=== PATIENT | male | born 1965 | race Caucasian/White ===

== ENCOUNTER → 2019-03-23 | Outpatient (CLI) | payer OTHER ==
--- NOTE | 2019-03-23 12:50 | CT ---
EXAMINATION TYPE: CT abdomen pelvis wo con DATE OF EXAM: 03/23/2019 COMPARISON: None HISTORY: Left flank pain CT DLP: 2268.1 mGycm Automated exposure control for dose reduction was used. TECHNIQUE: Helical acquisition of images was performed from the lung bases through the pelvis. FINDINGS: LUNG BASES: No significant abnormality is appreciated. LIVER/GB: No significant abnormality is appreciated. PANCREAS: No significant abnormality is seen. SPLEEN: No significant abnormality is seen. ADRENALS: No significant abnormality is seen. KIDNEYS: LEFT kidney: There is mild to moderate left hydronephrosis. There are least 6 left renal calculi and there is a left renal pelvic calcification. The renal pelvic calcification measures approximately 7 t o 8 mm. The majority of the calcifications within the left kidney measure 5 mm or less. Report called to referring clinician. Right kidney: No hydronephrosis or nephrolithiasis. ADENOPATHY: None visualized. OSSEOUS STRUCTURES: Severe hypertrophic and multilevel degenerative disc disease. Arthropathy of the hips. Osteitis pubis condensans. Correlate for femoral acetabular impingement. Multilevel canal sten osis suspected. BOWEL: No significant abnormality is seen. OTHER: Small fat-containing periumbilical hernia. Vascular calcification seen. Aorta of normal calibe r. IMPRESSION: 1. Moderate left hydronephrosis with multiple left renal calculi and an obstructing left UPJ calcific ation measuring approximately 8 mm in diameter. 2. Severe degenerative disc disease with multilevel canal stenosis noted.
== END | disposition home or self-care (01) ==
LOC: RADCTMAIN 11:57
PROVIDERS: ATTEND Family Medicine
DX: N13.2 Hydronephrosis with renal and ureteral calculous obstruction (principal); Q62.11 Congenital occlusion of ureteropelvic junction
CPT/HCPCS: 74176

== ENCOUNTER → 2019-03-24 | Outpatient (CLI) | payer OTHER ==
[2019-03-24 13:31] LABS: Basophils % (A) 0 %; Eosinophils # (A) 0.2 k/uL (0-0.7); Eosinophils % (A) 2 %; HCT 43.4 % (39.0-53.0); HGB 15.2 gm/dL (13.0-17.5); Lymphocytes # (A) 1.7 k/uL (1.0-4.8); Lymphocytes % (A) 23 %; MCH 31.7 pg (25.0-35.0); MCHC 34.9 g/dL (31.0-37.0); MCV 90.8 fL (80.0-100.0); Mean Platelet Volume 5.6; Monocytes # (A) 0.5 k/uL (0-1.0); Monocytes % (A) 7 %; Neutrophils # (A) 4.7 k/uL (1.3-7.7); Neutrophils % (A) 66 %; Platelet Count 200 k/uL (150-450); RBC 4.78 m/uL (4.30-5.90); RDW 13.5 % (11.5-15.5); WBC 7.1 k/uL (3.8-10.6)
[2019-03-24 13:41] LABS: Calcium 9.1 mg/dL (8.4-10.2); Potassium 3.9 mmol/L (3.5-5.1)
== END | disposition home or self-care (01) ==
LOC: LABPAT 12:22
PROVIDERS: ATTEND Urology
DX: Z01.812 Encounter for preprocedural laboratory examination (principal); N20.0 Calculus of kidney
CPT/HCPCS: 36415; 80048; 85025; 86850; 86900; 86901

== ENCOUNTER 2019-03-27 11:48 | Day surgery (SDC) | payer OTHER ==
--- NOTE | 2019-03-26 19:42 | P.GSHP ---
History of Present Illness H&P Date: 03/26/19 53 yo male with multiple left renal and ureteral stones with pain who is coming for a left pcnl. THere is a 12 mm upj stone and 20mm of llp stones Alternatives were discussed the risks and complications of a left pcnl was discussed. - Constitutional Constitutional: Denies chills, Denies fever - EENT Eyes: denies blurred vision, denies pain Ears, nose, mouth and throat: Denies headache, Denies sore throat - Cardiovascular Cardiovascular: Denies chest pain, Denies shortness of breath - Respiratory Respiratory: Denies cough, Denies 7 - Gastrointestinal Gastrointestinal: Denies abdominal pain, Denies diarrhea, Denies nausea, Denies vomiting - Genitourinary (Female) Genitourinary: Denies dysuria, Denies hematuria - Genitourinary (Male) Genitourinary: Denies dysuria, Denies hematuria - Musculoskeletal Musculoskeletal: Denies myalgias - Integumentary Integumentary: Denies pruritus, Denies rash - Neurological Neurological: Denies numbness, Denies weakness - Psychiatric Psychiatric: Denies anxiety, Denies depression - Endocrine Endocrine: Denies fatigue, Denies weight change Past Medical History Additional Past Medical History / Comment(s): kidney stone History of Any Multi-Drug Resistant Organisms: None Reported Additional Past Surgical History / Comment(s): laser eye sx Past Anesthesia/Blood Transfusion Reactions: No Reported Reaction Additional Past Anesthesia/Blood Transfusion Reaction / Comment(s): never had general surgery Smoking Status: Current every day smoker - Past Family History Mother Family Medical History: Cancer Additional Family Medical History / Comment(s): ovarian Sister(s) Family Medical History: Cancer Additional Family Medical History / Comment(s): lymphoma Medications and Allergies Home Medications Medication Instructions Recorded Confirmed Type Aspirin 325 mg PO DAILY 03/24/19 03/24/19 History HYDROcodone/APAP 7.5-325MG [[place] 1 tab PO TID PRN 03/24/19 03/24/19 History 7.5-325] Multivitamins, Thera [Multivitamin 1 tab PO DAILY 03/24/19 03/24/19 History (formulary)] Naproxen Sodium [Aleve] 220 mg PO DIRECTED PRN 03/24/19 03/24/19 History Omeprazole [PriLOSEC] 20 mg PO DAILY PRN 03/24/19 03/24/19 History Tamsulosin [Flomax] 0.4 mg PO DAILY 03/24/19 03/24/19 History Allergies Allergy/AdvReac Type Severity Reaction Status Date / Time Penicillins Allergy Unknown Verified 03/24/19 14:31 Childhood Surgical - Exam - General well developed, well nourished - ENT no hearing loss - Neck no masses, trachea midline - Respiratory normal expansion, normal respiratory effort - Cardiovascular Rhythm: regular - Abdomen Abdomen: soft, non tender - Genitourinary normal penis with no external lesions, testicles present - Integumentary no rash - Neurologic normal coordination, normal sensation - Psychiatric oriented to person, oriented to place, speech is normal Results - Imaging CT scan - abdomen: report reviewed, image reviewed CT scan - pelvis: report reviewed, image reviewed Assessment and Plan Assessment: Impression: Left renal stones, large Plan: Pcnl left
[~2019-03-27 11:48] MED LIST: DEXAMETHASONE SOD PHOSPHATE 10 MG/ML 1 ML VIAL IV ONE; HYDROmorphone 0.5 MG/0.5 ML SYRINGE IVP PRN; LIDOCAINE 1% 20 ML VIAL (10MG/ML) FOR IV START INTRADERMA PRN; ONDANSETRON 4 MG/2 ML VIAL IVP ONE; fentaNYL (PF) 50 MCG/ML 2 ML AMP IV PRN
--- NOTE | 2019-03-27 12:51 | XR ---
Abdomen HISTORY: Nephrolithiasis Frontal view the abdomen on [address] scan 03/23/2019 There is a calculus present in the proximal left ureter region as noted on CT measuring 11 mm. Multip le calcifications are present in the lower pole the left kidney, largest measuring approximately 7 to 8 mm. Degenerative disc changes are present in the visualized spine. There is no obstruction or pneumoperit oneum. IMPRESSION: Left nephrolithiasis, ureteral calculus.
[2019-03-27] MEDS: LACTATED RINGERS 1,000 ML IV SCH ×2 (13:05→23:00)
[2019-03-27] MEDS ORDERED: HEPARIN SODIUM,PORCINE 5,000 UNIT/ML 1 ML VIAL SQ ONE (13:26)
[2019-03-27] MEDS ORDERED: MIDAZOLAM 2 MG/2 ML VIAL ONE (14:12)
[2019-03-27] MEDS ORDERED: NEOSTIGMINE 1 MG/ML 10 ML VIAL ONE (14:12)
[2019-03-27] MEDS ORDERED: fentaNYL (PF) 50 MCG/ML 2 ML AMP ONE (14:12)
[2019-03-27] MEDS ORDERED: LIDOCAINE 1% INJ 10MG/ML (20 ML MDV) ONE (14:12)
[2019-03-27] MEDS ORDERED: GLYCOPYRROLATE 0.2 MG/ML 2 ML VIAL ONE (14:12)
[2019-03-27] MEDS ORDERED: ROCURONIUM BROMIDE 10 MG/ML 10 ML VIAL IV ONE (14:12)
[2019-03-27] MEDS ORDERED: SUCCINYLCHOLINE CHLORIDE VIAL 200 MG/10 ML VIAL IV ONE (14:12)
[2019-03-27] MEDS ORDERED: PROPOFOL 10 MG/ML 20 ML VIAL IV ONE (14:12)
[2019-03-27] MEDS ORDERED: IOPAMIDOL-370 50ML BTL MISCELLANE ONE (14:52)
[2019-03-27] MEDS ORDERED: IOHEXOL 350 MG/ML (PER ML) 100ML BTL MISCELLANE ONE (14:52)
[2019-03-27] MEDS ORDERED: LACTATED RINGERS 1,000 ML IV ONE ×2 (15:28→16:21)
[2019-03-27] MEDS ORDERED: PANTOPRAZOLE 40 MG TABLET PO PRN (15:34)
[2019-03-27] MEDS ORDERED: ONDANSETRON 4 MG/2 ML VIAL IVP PRN (15:34)
[2019-03-27] MEDS ORDERED: MAG HYDROX/AL HYDROX/SIMETH 30 ML CUP PO PRN (15:34)
[2019-03-27] MEDS ORDERED: ACETAMINOPHEN TAB 325 MG TAB PO PRN (15:34)
[2019-03-27] MEDS ORDERED: HYDROmorphone PCA 10 MG/50 ML BAG IV PRN (15:36)
[2019-03-27] MEDS ORDERED: NALOXONE 0.4 MG/ML 1 ML VIAL IV PRN (15:36)
--- NOTE | 2019-03-27 15:41 | P.OP ---
Date of Procedure: 03/27/19 Preoperative Diagnosis: Left ureteral and renal calculi, large Postoperative Diagnosis: Same Procedure(s) Performed: Cystoscopy, placement of occluding balloon catheter left, percutaneous nephrostomy (Dr. Noriega) percutaneous nephrostolithotomy, placement of 10-[place] J nephrostomy Anesthesia: SANDRA Surgeon: Richie Barber Estimated Blood Loss (ml): 50 Pathology: other (Stone) Condition: stable Disposition: PACU Indications for Procedure: The patient is a 53-year-old, morbidly obese gentleman with a 12 mm UPJ stone and 20 mm of lower pole stone on the left. He was seen by who felt he be best served with a percutaneous nephrostolithotomy. I saw him simultaneously in the office. We have set him up for this procedure today. The lower pole stones are not well seen on the KUB today. Description of Procedure: Patient is brought to the operating suite. He is given a general endotracheal anesthesia on the transport gurney. He's placed in a frog position with a sterile prep and drape and rolls underneath his hips. Cystoscopy Foroblique lens and 22-[place] sheath identifies normal urethra. The prostate is not obstructing. The left ureteral orifice is identified and intubated with a 5- [place] occluding balloon catheter that is passed up into the UPJ. It is secured to a 16-[place] Leiva after the cystoscope was removed The patient is placed in a prone position to care to airways and extremities. Dr. Noriega of radiology performed access to the lower pole calyx. We dilate the tract to 30-[place]. Introduced the rigid sheath into the collecting system. With the rigid scope removed clot. I first identified the first lower pole calyceal stone. He passed the scope into the renal pelvis there is another lower pole stone crumbled. We then pass the scope into the UPJ where there is a large stone that is grasped broken in half and pulled out. I then pulled the rigid scope back into the lower pole calyx and identify another stone that is about 8 or 9 mm remove it. This point time I passed the flexible scope down the UPJ throughout the collecting system and see no remaining stone. A 10-[place] J nephrostomy tube was placed over the working wire. Coils in the renal pelvis. It is secured to the skin with 2-0 silk. Sheath is removed the patient's awakened and returned recovery room good condition. Blood loss is approximately 50 mL. He'll be kept in the hospital overnight and discharged home upon recovery tomorrow. Patient's condition is good.
--- NOTE | 2019-03-27 16:04 | FL ---
EXAMINATION TYPE: FL Perc Nephrostomy New Access DATE OF EXAM: 03/27/2019 COMPARISON: CT 03/23/2019 HISTORY: Left renal stones. PROCEDURE: Maximal barrier technique was utilized. The skin overlying the left kidney was localized using fluor oscopy and the overlying skin prepped and draped. Lidocaine used for local anesthesia. Skin nikki wa s made with a scalpel. Access was gained under fluoroscopy, following placement of a ureteral occlus ion balloon by the referring clinician and instillation of air in the renal collecting system with a 21-gauge needle to the kidney. A suitable posterior calyx was chosen. A 0.018 inch wire was advanc ed. The access site was dilated and subsequently a sheath was advanced into the renal pelvis followi ng dilation with balloon along the tract. The patient underwent nephrolithotomy by the referring clin ician. The patient remained in stable condition without complication. The patient was discharged t o observation. 2 minutes 26 seconds fluoroscopy time, 4 intraoperative images document the procedure. IMPRESSION: STATUS POST NEPHROSTOMY PLACEMENT FOR NEPHROLITHOTOMY WITH FLUOROSCOPIC GUIDANCE. THIS PROCEDURE PER FORMED BY THE UNDERSIGNED.
[2019-03-27 17:57] VITALS: BMI 46.3
[2019-03-27] MEDS: DEXTROSE 5%-0.45% NACL 1,000 ML IV SCH (18:07)
[2019-03-27 18:12] VITALS: RESP 16
[2019-03-27] MEDS: HYDROcodone/APAP 7.5-325MG 1 EACH TAB PO PRN (21:38)
[2019-03-28] MEDS: DEXTROSE 5%-0.45% NACL 1,000 ML IV SCH (02:32)
[2019-03-28] MEDS: HYDROcodone/APAP 7.5-325MG 1 EACH TAB PO PRN (03:19)
[2019-03-28 05:50] VITALS: BP 137/84; PULSE 72; TEMP 98.7
--- NOTE | 2019-03-28 06:52 | P.DS ---
Providers Date of admission: The patient was admitted 03/27/2019 for percutaneous nephrostolithotomy to a large collection of left renal stones. These were removed. He did well overnight with a nephrostomy tube. His urine is clear. His pain is controlled. Vital signs are stable. He'll be discharged home. He'll follow-up in the office in on for nephrostomy tube removal. Is been given a prescription for [place]. Condition is good. Attending physician: Richie Barber Primary care physician: Mago Hutson Plan - Discharge Summary Discharge Rx Participant: No New Discharge Prescriptions: New HYDROcodone/APAP 5-325MG [[place] 5-325] 1 tab PO Q4HR PRN 3 Days #10 tab PRN Reason: Pain No Action Tamsulosin [Flomax] 0.4 mg PO DAILY Naproxen Sodium [Aleve] 220 mg PO DIRECTED PRN PRN Reason: Pain Multivitamins, Thera [Multivitamin (formulary)] 1 tab PO DAILY Aspirin 325 mg PO DAILY Omeprazole [PriLOSEC] 20 mg PO DAILY PRN PRN Reason: GERD HYDROcodone/APAP 7.5-325MG [[place] 7.5-325] 1 tab PO TID PRN PRN Reason: Pain Discharge Medication List Aspirin 325 mg PO DAILY 03/24/19 [History] HYDROcodone/APAP 7.5-325MG [[place] 7.5-325] 1 tab PO TID PRN 03/24/19 [History] Multivitamins, Thera [Multivitamin (formulary)] 1 tab PO DAILY 03/24/19 [History] Naproxen Sodium [Aleve] 220 mg PO DIRECTED PRN 03/24/19 [History] Omeprazole [PriLOSEC] 20 mg PO DAILY PRN 03/24/19 [History] Tamsulosin [Flomax] 0.4 mg PO DAILY 03/24/19 [History] HYDROcodone/APAP 5-325MG [[place] 5-325] 1 tab PO Q4HR PRN 3 Days #10 tab 03/28/19 [Rx]
[2019-03-28] MEDS ORDERED: TAMSULOSIN 0.4 MG CAP.ER.24H PO SCH (09:00)
== END 2019-03-28 11:20 | disposition home or self-care (01) ==
LOC: OR 11:48 → 4MS4W 16:39 → OR 03-28 11:20
PROVIDERS: ATTEND Urology
DX: N20.2 Calculus of kidney with calculus of ureter (principal); K21.9 Gastro-esophageal reflux disease without esophagitis; F17.200 Nicotine dependence, unspecified, uncomplicated; E66.01 Morbid (severe) obesity due to excess calories; Z68.42 Body mass index [BMI] 45.0-49.9, adult; Z87.442 Personal history of urinary calculi; Z98.890 Other specified postprocedural states; Z79.82 Long term (current) use of aspirin; Z79.891 Long term (current) use of opiate analgesic; Z79.899 Other long term (current) drug therapy; Z88.0 Allergy status to penicillin; Z80.41 Family history of malignant neoplasm of ovary; Z80.8 Family history of malignant neoplasm of other organs or systems
CPT/HCPCS: 82365; 50432 ×2; 74018; 52005; 50081; C2628; C1769 ×2; C1894; C1729; J2250; J0330; J1644; J1100; J2710; J0690; J2405; J2001; J3010; J2704; Q9967; 86850; 86900; 86901

== ENCOUNTER → 2024-01-15 | Outpatient (CLI) | payer OTHER ==
--- NOTE | 2024-01-15 09:30 | CT ---
EXAMINATION TYPE: CT abdomen pelvis w con CT DLP: 2433.4 mGycm, Automated exposure control for dose reduction was used. DATE OF EXAM: 01/15/2024 9:06 AM COMPARISON: CT abdomen pelvis most recent from CLINICAL INDICATION: Male, 58 years old with history of R10.[address] ABPW; Hematuria, RLQ pain. TECHNIQUE: Axial CT abdomen pelvis w con;Sagittal and coronal reformats were created on a separate w orkstation. Contrast used:100 mL of Isovue 300 with IV Contrast, (none if empty) Oral contrast used: with Oral Contrast (none if empty) FINDINGS: LOWER CHEST: Unremarkable ABDOMEN LIVER: Unremarkable GALLBLADDER AND BILE DUCTS: Unremarkable. PANCREAS: Unremarkable. SPLEEN: Unremarkable. ADRENAL GLANDS: Unremarkable. KIDNEYS AND URETERS: Right renal calculi measuring up to 10 mm with one in the renal pelvis measuring 18 mm which may be partially obstructing with mild hydronephrosis. Moderate left hydronephrosis with stacking ureteral stones present with at least 6 stones in the ureter left ureter just proximal to t he ureterovesicular junction. The largest most distally measuring 10 mm with multiple smaller upstrea m. PELVIS BLADDER: Unremarkable REPRODUCTIVE: Coarse calcifications of the prostate gland are identified. Prostate gland enlarged emanuel suring up to 5.5 cm in transverse dimension. ABDOMEN & PELVIS STOMACH AND BOWEL: No evidence of bowel obstruction. The appendix is normal. PERITONEUM/RETROPERITONEUM: No evidence of pneumoperitoneum or free fluid. VASCULATURE: No evidence of aortic aneurysm. MUSCULOSKELETAL: No acute osseous abnormalities. Moderate disc degeneration changes are present throu ghout the thoracolumbar spine. LYMPH NODES: No gross evidence for lymphadenopathy. SOFT TISSUE/ABDOMINAL WALL: Fat-containing umbilical hernia.r IMPRESSION: 1. Right renal nonobstructing calculi measuring up to 10 mm with one in the renal pelvis measuring 1 8 mm which may be partially obstructing with mild hydronephrosis. Urologic consultation recommended. 2. Moderate left hydronephrosis with stacking ureteral stones present with at least 6 stones in the ureter left ureter just proximal to the ureterovesicular junction. The largest most distally measurin g 10 mm with multiple smaller calculi upstream. Urologic consultation recommended 3. Normal appendix. No other acute right lower quadrant process present.
== END | disposition home or self-care (01) ==
LOC: RADCTMAIN 06:49
PROVIDERS: ATTEND Family Medicine
DX: N13.2 Hydronephrosis with renal and ureteral calculous obstruction (principal); R31.0 Gross hematuria
CPT/HCPCS: 74177; Q9967

== ENCOUNTER 2024-02-16 05:44 | Day surgery (SDC) | payer OTHER ==
[2024-02-10 15:28] VITALS: BMI 38.0
--- NOTE | 2024-02-15 11:12 | P.GSHP ---
History of Present Illness H&P Date: 02/15/24 58-year-old gentleman with kidney stones. His last stone was in 2019 where he had a percutaneous nephrostolithotomy for calcium oxalate stones. A gross hematuria recently. He had a computed tomography scan identifying bilateral stones. On the right there is a large renal pelvic stone plus calyceal stones. On the left there is a collection of ureteral stones in the distal left ureter. He comes for left ureteroscopy and laser lithotripsy and probable stent placement. He'll eventually undergo a percutaneous nephrostolithotomy on the right - Constitutional Constitutional: Denies chills, Denies fever - EENT Eyes: denies blurred vision, denies pain Ears, nose, mouth and throat: Denies headache, Denies sore throat - Cardiovascular Cardiovascular: Denies chest pain, Denies shortness of breath - Respiratory Respiratory: Denies cough, Denies 7 - Gastrointestinal Gastrointestinal: Denies abdominal pain, Denies diarrhea, Denies nausea, Denies vomiting - Genitourinary (Female) Genitourinary: Denies dysuria, Denies hematuria - Genitourinary (Male) Genitourinary: Denies dysuria, Denies hematuria - Musculoskeletal Musculoskeletal: Denies myalgias - Integumentary Integumentary: Denies pruritus, Denies rash - Neurological Neurological: Denies numbness, Denies weakness - Psychiatric Psychiatric: Denies anxiety, Denies depression - Endocrine Endocrine: Denies fatigue, Denies weight change Past Medical History Past Medical History: GERD/Reflux, Hypertension Additional Past Medical History / Comment(s): Hx kidney stone. Current kidney stones. History of Any Multi-Drug Resistant Organisms: None Reported Additional Past Surgical History / Comment(s): Laser eye surgery, procedure for kidney stones. Past Anesthesia/Blood Transfusion Reactions: No Reported Reaction Additional Past Anesthesia/Blood Transfusion Reaction / Comment(s): never had general surgery Smoking Status: Current every day smoker - Past Family History Mother Family Medical History: Cancer Additional Family Medical History / Comment(s): Ovarian cancer. Sister(s) Family Medical History: Cancer Additional Family Medical History / Comment(s): Lymphoma. Medications and Allergies Home Medications Medication Instructions Recorded Confirmed Type Multivitamins, Thera [Multivitamin 1 tab PO DAILY 03/24/19 02/10/24 History (formulary)] Omeprazole [PriLOSEC] 20 mg PO DAILY 03/24/19 02/10/24 History Glucosamine (Unknown Dose) 1 tab PO DAILY 02/10/24 02/10/24 History Lisinopril-Hctz 20-12.5 mg 1 tab PO QAM 02/10/24 02/10/24 History [Zestoretic 20-12.5] Allergies Allergy/AdvReac Type Severity Reaction Status Date / Time Penicillins Allergy Unknown Verified 02/10/24 14:53 Childhood Surgical - Exam - General well developed, well nourished, no distress - Eyes normal ocular movement, no icteric - ENT no hearing loss, no congestion - Neck no masses, trachea midline - Respiratory normal respiratory effort, clear to auscultation - Abdomen Abdomen: soft, non tender, no guarding, no rigid, no rebound - Integumentary no rash, no abnormal pigmentation - Neurologic no disoriented, no combative - Psychiatric oriented to time, oriented to person, oriented to place, speech is normal, memory intact Results - Imaging CT scan - abdomen: report reviewed, image reviewed CT scan - pelvis: report reviewed, image reviewed Assessment and Plan Assessment: Impression: Left ureteral stones with obstruction. Right renal stones. Plan left ureteroscopy laser lithotripsy was complications alternatives have been discussed.
[2024-02-16] MEDS ORDERED: MIDAZOLAM 2 MG/2 ML VIAL IV PRN (05:49)
[2024-02-16] MEDS ORDERED: fentaNYL (PF) 50 MCG/ML 2 ML AMP IVP PRN (05:49)
[2024-02-16] MEDS ORDERED: LIDOCAINE 1% (10MG/ML) FOR IV START INTRADERMA PRN (05:49)
[2024-02-16] MEDS ORDERED: HYDROmorphone 0.5 MG/0.5 ML SYRINGE IVP PRN (05:49)
--- NOTE | 2024-02-16 06:17 | XR ---
EXAMINATION TYPE: XR KUB DATE OF EXAM: 02/16/2024 6:11 AM CLINICAL HISTORY: Calculus of ureter TECHNIQUE: Two supine KUB images of the abdomen are obtained. COMPARISON: CT abdomen and pelvis January 15, 2024. FINDINGS: Persistent roughly 2.2 cm right pelvic calculus. There are 3-4 lower pole right renal calcu li measuring up to 12 mm in size. There are 3 adjacent distal left ureter calculi measuring up to 13 mm in size in the left pelvis. Overall nonobstructive bowel gas pattern. Scoliosis with multilevel spurring and disc space narrowing in the thoracolumbar spine is seen. Lung bases are clear. IMPRESSION: Bilateral nephrolithiasis redemonstrated. [facility], , 02/16/2024 6:15 AM
[2024-02-16] MEDS: IV FLUID CONTINUATION 1,000 ML IV ONE (06:47)
[2024-02-16] MEDS: ONDANSETRON 4 MG/2 ML VIAL IVP ONE (06:55)
[2024-02-16] MEDS: LACTATED RINGERS 1,000 ML IV SCH (06:56)
[2024-02-16] MEDS: DEXAMETHASONE SOD PHOSPHATE 4 MG/ML 1 ML VIAL IV ONE (06:56)
[2024-02-16] MEDS ORDERED: MIDAZOLAM 2 MG/2 ML VIAL ONE (07:26)
[2024-02-16] MEDS ORDERED: LIDOCAINE 1% INJ 10MG/ML (20 ML MDV) ONE (07:26)
[2024-02-16] MEDS ORDERED: PROPOFOL 10 MG/ML 20 ML VIAL IV ONE (07:26)
[2024-02-16] MEDS ORDERED: ePHEDrine 50 MG/ML 1 ML VIAL ONE (07:26)
[2024-02-16] MEDS ORDERED: fentaNYL (PF) 50 MCG/ML 2 ML AMP ONE (07:26)
[2024-02-16] MEDS: IOPAMIDOL-370 100ML BTL MISCELLANE ONE (07:58)
[2024-02-16] MEDS: LACTATED RINGERS 1,000 ML IV ONE (08:42)
[2024-02-16 09:00] VITALS: TEMP 97.2
--- NOTE | 2024-02-16 09:06 | P.OP ---
Date of Procedure: 02/16/24 Preoperative Diagnosis: ureteral calculi, large, left Postoperative Diagnosis: same Procedure(s) Performed: cystoscopy, left ureteroscopy with laser lithotripsy, placement of 6 x 24 double-J catheter Anesthesia: SANDRA Surgeon: Richie Barber Estimated Blood Loss (ml): 10 Pathology: other Condition: stable (stone) Disposition: PACU Indications for Procedure: the patient is 58. He had gross hematuria. He has bilateral stones. He is a large volume of renal stones on the right and he has 3 very large distal ureteral stones on the left almost 2 cm in volume. He comes for left ureteroscopy with laser lithotripsy. He'll need a percutaneous nephrostolithotomy at a later date on the right. Description of Procedure: patient brought to the operating suite. Given a general anesthetic. Placed lithotomy position with a sterile prep and drape. Cystoscopy of the Foroblique lens and 21-[place] sheath identifies a normal anterior urethra. The prostatic urethra is not obstructing. The bladder mucosa is unremarkable. The left ureteral orificeis identified and intubated with an 035 Glidewire. I am unable to pass it by the stone which is quite impacted. Over the wire I dilate the distal ureter beyond the stone. I passed the dilating catheter up to the stone and through this I passed the wire and him able to eventually get by the stone. I then pass a semirigid scope up to the stone. The stone was very hard. Using the 375 laser probe the first stone was broken into tiny pieces. There are 2 more stones that have to be broken. They are broken. He takes about an hour to remove all the stones. Eventually I'm able to go above where the stones are located in the ureters hydronephrotic. I basket any of the largest fragments. At the end of the procedure there is no significant fragments remaining. The wires backloaded onto the cystoscope. Over the wire I passed a 6 x 24 double-J catheter that coils in the renal pelvis and in the bladder. The bladder is drained. Fragments of the stone or collected and sent to pathology. The p atient is awakened and returned recovery in good condition. He tolerated the procedure well be discharged home.
[2024-02-16 10:14] VITALS: BP 114/72; PULSE 77; RESP 16
--- NOTE | 2024-02-16 12:54 | FL ---
Fluoroscopy History: LEFT URETERAL STONE LEFT URETERAL STONE MANIPULATION AND REMOVAL WITH STENT PLACEMENT FL TIME 51 SECS DAP [id number] [facility], , 02/16/2024 12:52 PM
== END 2024-02-16 10:43 | disposition home or self-care (01) ==
LOC: OR 05:44
PROVIDERS: ATTEND Urology
DX: N20.1 Calculus of ureter
CPT/HCPCS: 74018; 82365